=== PATIENT | male | born 1985 | race Caucasian/White ===

== ENCOUNTER → 2021-01-18 10:07 | Outpatient (BNVA) | payer OTHER, MEDICAID, SELFPAY | PROVIDERS: Referring Provider Family Medicine Adult Medicine; Visit Provider Orthopaedic Surgery | DX: M25.562 Pain in left knee (principal); M25.462 Effusion, left knee | CPT/HCPCS: 73560; 73565 ==

== ENCOUNTER → 2021-02-02 08:56 | Outpatient (BNVA) | payer OTHER, MEDICAID, SELFPAY | PROVIDERS: Visit Provider Orthopaedic Surgery | DX: M54.16 Radiculopathy, lumbar region (principal) | CPT/HCPCS: 72110 ==

== ENCOUNTER 2021-03-16 06:54 | Outpatient (CLI) | payer OTHER, BC, SELFPAY ==
--- NOTE | 2021-03-16 07:15 | MR_ITS ---
WS: [id number] MRI LUMBAR SPINE NONCONTRAST TECHNIQUE: Sagittal T1, T2 and STIR imaging. Axial T1 and T2 imaging. CLINICAL INFORMATION: M54.16 - Radiculopathy, lumbar region COMPARISON: None. FINDINGS: Mild lumbar curve. No acute compression. Mild disc bulging worse L5-S1. L1-L2: Normal. L2-L3: Minimal annular bulging. Mild facet arthropathy. Spinal canal and foramen are patent. L3-L4: Minimal annular bulging. Mild facet arthropathy. Spinal canal and foramen are patent. L4-L5: Minimal annular bulging. Slight effacement of ventral thecal sac. Mild facet arthropathy. Spin al canal and foramen are patent. L5-S1: Mild annular bulging with a small central and left pericentral shallow protrusion. Contact of the traversing left S1 nerve root. Recommend correlation for left S1 nerve root symptoms. Mild left f oraminal narrowing. Mild facet arthropathy. Visualized pelvic bony structures: Normal. Paravertebral soft tissues: Normal. MR/MR lumbar spine wo con* [id number] IMPRESSION: 1. Mild lumbar curve. No acute compression. No high-grade central canal stenos is. 2. Shallow central and left pericentral L5-S1 protrusion slightly impinges the traversing left S1 nerve root. Recommend correlation left S1 nerve root sympto ms. Mild left L5-S1 foraminal narrowing. 3. Mild annular bulging L4-5 with slight effacement of ventral thecal sac. Min imal narrowing of the left greater than right subarticular recess. 4. Mild facet arthropathy L4-L5 and L5-S1.
== END 2021-03-16 06:55 | disposition home or self-care (01) ==
LOC: RADSHAW 06:58
PROVIDERS: PCP Family Medicine Adult Medicine; Visit Provider Orthopaedic Surgery
DX: M54.16 Radiculopathy, lumbar region (principal); M47.816 Spondylosis without myelopathy or radiculopathy, lumbar region; M47.817 Spondylosis without myelopathy or radiculopathy, lumbosacral region; M51.26 Other intervertebral disc displacement, lumbar region; M51.27 Other intervertebral disc displacement, lumbosacral region
CPT/HCPCS: 72148

== ENCOUNTER → 2021-04-20 09:21 | Outpatient (BNVA) | payer OTHER, BC, MEDICAID, SELFPAY | PROVIDERS: PCP Family Medicine Adult Medicine; Visit Provider Orthopaedic Surgery | DX: Z01.812 Encounter for preprocedural laboratory examination (principal) | CPT/HCPCS: 87635 ==

== ENCOUNTER 2021-04-27 09:22 | Day surgery (SDC) | payer OTHER, BC, MEDICAID, SELFPAY ==
[2021-04-20 10:59] VITALS: BMI 34.9
[2021-04-27] VITALS (7 sets, daily range): BP systolic 114–163; BP diastolic 84–110; PULSE 78–104; RESP 16–18; TEMP 36.2–36.8; O2SAT 94–98
--- NOTE | 2021-04-27 | XR_ITS ---
WS: [id number] INTRAOPERATIVE TECHNIQUE: 2 Spot fluoroscopic images for intraoperative purposes. FLUOROSCOPY TIME: 9.7 seconds CLINICAL INFORMATION: herniated nuclues pulposus L5/S1 COMPARISON: None. FINDINGS: Localization marker projected over the LEFT L5-S1 interspace dorsally XR/XR lumbar spine 1V [id number] IMPRESSION: Images obtained for intraoperative purposes.
--- NOTE | 2021-04-27 | SCC_ITS ---
Procedure done: 1. L5/S1 laminectomy with partial facetectomy and diskectomy 9.7 seconds of fluoroscopic guidance, for a cumulative dose of 6.09 mGy, was provided to Dr. Tanner by the radiology department. C-arm images of the lumbar spine were saved for the patient's permanent record. [facility]
--- NOTE | 2021-04-27 09:02 | W.PM.OPSUD ---
Surgery/Procedure H&P Update DATE OF PROCEDURE: April 27, 2021 DATE H&P PERFORMED: 04/07/21 CHANGES TO PREVIOUS DOCUMENTATION: H+P reviewed no changes PLANNED PROCEDURE: Operation Date: 04/27/21 09:45 Proposed Procedures p Discectomy 34613/m51.26(Left) - Kemal Tanner DO
[2021-04-27] MEDS: sodium chloride 0.9% 1,000 ML 30 ML IV (10:14)
--- NOTE | 2021-04-27 10:18 | ANES.PREANE2 ---
Pre-Anesthetic Assessment Height/Weight: Height 1.91 m Weight 127.006 kg Temp Pulse Resp BP Pulse Ox 97.6 F 87 16 128/87 96 04/27/21 09:40 04/27/21 09:40 04/27/21 09:40 04/27/21 09:40 04/27/21 09:40 Preop Diagnosis: HNP left L5-S1 Operation Date: 04/27/21 09:45 Proposed Procedures p Discectomy 53452/m51.26(Left) - Kemal Tanner DO Familial anesthetic complications: None Was Beta Deepika taken within 24 hours: N/A Was Clonidine taken within 24 hours: N/A Last intake: Intake Last Liquid Date 04/26/21 Last Liquid Time 23:55 Last Solid Date 04/26/21 Last Solid Time 23:00 Social Tobacco and No alcohol Exam alert, oriented x 3, clear to auscultation bilaterally and regular rate & rhythm Airway Submandibular: within normal limits Cervical ROM: within normal limits Mallampati: Class II Dentition: partials Pulmonary Chronic Obstructive Pulmonary Disease GI Gastroesophageal Reflux Disease Metabolic Morbid Obesity Musc/sk Lower Back Pain Neuropsych Anxiety Anesthetic Plan ASA status: 2 Anesthesia: General Risk of > 500 ml blood loss (7ml/kg in children): No Medications/Allergies Home Medications Medication Instructions Recorded Confirmed Last Taken Type omeprazole 40 mg capsule,delayed 40 mg PO DAILY 01/17/21 04/27/21 04/26/21 23:00 History release sertraline 50 mg tablet See Rx Instructions .ROUTE 03/25/21 04/27/21 04/26/21 Rx .COMPLEX #30 tab Auto titrating APAP 5-20 cm and #1 ea 03/28/21 04/07/21 Unknown Rx supplies Allergies Allergy/AdvReac Type Severity Reaction Status Date / Time No Known Allergies Allergy Verified 04/20/21 10:57 Current Medications Generic Name Dose Route Start Last Admin Trade Name Freq PRN Reason Stop Dose Admin Sodium Chloride 1,000 mls @ 30 mls/hr 04/27/21 09:45 04/27/21 10:14 Sodium Chloride 0.9% IV 04/28/21 09:44 30 mls/hr .Q24H OSIEL Administration PFSH Anesthesia Medical History Anxiety and depression Patellar bursitis of left knee Sleep apnea syndrome Social History Alcohol intake: never Data Anesthesia Cardiac Studies: No Data to Display
--- NOTE | 2021-04-27 11:23 | PM.OP ---
Operative Report Date of procedure: April 27, 2021 Pre-op diagnosis: Preop Diagnosis HNP left L5-S1with S1 radiculopathy Post-op diagnosis: same Procedure done: 1. L5/S1 laminectomy with partial facetectomy and diskectomy Surgeon: Kemal Tanner [employer] Equipment Operator: Jarvis Winters [employer] Equipment Operator: The surgical services asst, Jarvis Winters, PAC was needed for his expertise under the microscope. He was important and necessary throughout the procedure to complete in a safe and timely manner. He assisted with patient positioning prepping and draping tissue retraction suctioning of the operative field protection of the dural sac and tissue closure Procedure: 1. L5/S1 laminectomy with partial facetectomy and diskectomy Patient is brought to the operative suite. After undergoing anesthesia they are placed in the prone position. All areas of impingement are well padded. Patient is then prepped and draped in the normal sterile fashion. A skin incision is made over the L5/S1 level. This is confirmed under c-arm guidance. A series of dilators are passed and the tubular retractor is docked on the L5 lamina. A bovie is used to clear the soft tissue off the lamina and the L 5 facet joint. A high speed debbie is then used to perform the laminectomy and take down the medial aspect of the L 5/S1 facet joint. A kerrison rongeure was then used to take down the remaining lamina and smooth the edge of the laminectomy up to the point where the ligamentum flavum attaches. Attention was then brought to the medial aspect of the facet joint. The remaining medial aspect of the superior and inferior aspect of the facet joint were taken down with the kerrison from the pedicle of L5 to S1. The facet joint had significant hypertrophy. Attention was then brought to the Ligamentum Flavum. The ligament was taken down from the lamina of L5 to S1 and out medially to the remaining facet joint. The ligament was thick. The dura was then exposed. The dura was in good repair. The L5 nerve was then traced with a curette out the L5/S1 foramen and found to be adequately decompressed. The S1 nerve was traced with a curette around the S1 pedicle. The lateral recess was opened with a kerrison helping to further decompress the S1 nerve. Wound is then irrigated copiously with saline and surgiflo is used to stop any bleeding. The tubular retractor is removed and the wound is closed with vicryl and monocryl suture. Glue is then used to protect the wound. A sterile dressing is then placed. Patient was then placed in the supine position and transferred to the PACU in stable condition.
--- NOTE | 2021-04-27 12:28 | ANE.PACU2 ---
Inpatient post-anesthesia follow up: Airway intact: Yes Vital signs: Temperature 97.9 F Pulse Rate 82 Respiratory Rate 16 Blood Pressure 116/87 Pulse Oximetry 94 Oxygen Delivery Me thod Room Air Oxygen Flow Rate 6 Fraction of Inspir ed Oxygen Hydration adequate: Yes Nausea and vomiting: No Pain level: 3 Mental status: Baseline
[2021-04-27] MEDS: HYDROcodone-acetaminophen 5-325 mg Tablet 1 TAB PO (12:33)
== END 2021-04-27 12:56 | disposition home or self-care (01) ==
PROVIDERS: PCP Family Medicine Adult Medicine; Visit Provider Orthopaedic Surgery
PROC: (CPT 63030; principal; 2021-04-27 09:45)
DX: M54.17 Radiculopathy, lumbosacral region (principal); J44.9 Chronic obstructive pulmonary disease, unspecified; K21.9 Gastro-esophageal reflux disease without esophagitis; E66.01 Morbid (severe) obesity due to excess calories; Z68.35 Body mass index [BMI] 35.0-35.9, adult; F41.9 Anxiety disorder, unspecified; G47.30 Sleep apnea, unspecified
CPT/HCPCS: 63030; 72020; 76000; J0690; J1100; J1885; J2250; J2405; J2704; J2710; J3010; J3490; J7030

== ENCOUNTER 2022-05-01 07:13 | Outpatient (CLI) | payer OTHER, SELFPAY ==
--- NOTE | 2022-05-01 07:15 | MR_ITS ---
WS: [id number] MRI LUMBAR SPINE NONCONTRAST TECHNIQUE: Sagittal T1, T2 and STIR imaging. Axial T1 and T2 imaging. CLINICAL INFORMATION: M54.17 - Radiculopathy, lumbosacral region COMPARISON: MRI March 16 FINDINGS: Mild lumbar curve. No acute compression. No high-grade central canal stenosis. Prior postoperative ch anges LEFT L5-S1 hemilaminectomy new from March 16, 2021. L1-L2: Normal. L2-L3: No significant disc bulging. Mild facet arthropathy. Spinal canal and foramen are patent. L3-L4: Minimal annular bulging. Mild facet arthropathy. Spinal canal and foramen are patent. L4-L5: Mild annular bulging eccentric to the RIGHT. Mild RIGHT and no LEFT foraminal narrowing. Sligh t narrowing of the RIGHT subarticular recess. Mild facet arthropathy. Spinal canal is patent. L5-S1: LEFT hemilaminectomy. This is new from previous. Contact of the LEFT S1 nerve root. Small ashley lar fissure. LEFT S1 nerve root impingement improved compared to previous. Mild LEFT foraminal narrow ing. Mild facet arthropathy. Visualized pelvic bony structures: Normal. Paravertebral soft tissues: Normal. MR/MR lumbar spine wo con* [id number] IMPRESSION: 1. Mild lumbar curve. No acute compression. No high-grade central canal stenos is. 2. LEFT L5-S1 hemilaminectomy with postoperative changes. Slight contact of th e LEFT S1 nerve root with a small disc protrusion/granulation tissue with annul ar fissure. This is improved compared to previous. Mild LEFT foraminal narrowin g. 3. Mild annular bulging L3-L4 with slight effacement of ventral thecal sac. 4. Mild annular bulging L4-L5 with slight narrowing of the RIGHT subarticular recess with mild RIGHT foraminal narrowing.
== END 2022-05-01 07:14 | disposition home or self-care (01) ==
LOC: RAD 07:17
PROVIDERS: PCP Family Medicine Adult Medicine; Visit Provider Orthopaedic Surgery
DX: M54.17 Radiculopathy, lumbosacral region (principal); M51.27 Other intervertebral disc displacement, lumbosacral region; M51.26 Other intervertebral disc displacement, lumbar region
CPT/HCPCS: 72148

== ENCOUNTER 2023-03-21 08:08 | Outpatient (CLI) | payer OTHER, SELFPAY ==
[2023-03-21 08:31] LABS: Add Urine Microscopic? NO; Charge for UA Resulting for Rev
[2023-03-21 08:36] LABS: Basophils # 0.1 10^3/uL (0.0-0.1); Basophils % 0.7 %; Eosinophils # 0.2 10^3/uL (0.0-0.8); Eosinophils % 2.4 %; Hematocrit 45.1 % (37-53); Lymphocytes # 2.2 10^3/uL (0.8-4.8); Lymphocytes % 28.9 %; Mean Corpuscular HGB Conc 33.5 g/dL (30-55); Mean Corpuscular Hemoglobin 27.4 pg (27-33); Mean Corpuscular Volume 81.9 fl (82-101); Mean Platelet Volume 9.5 fL (7.4-10.4); Monocytes # 0.4 10^3/uL (0.2-0.9); Monocytes % 5.5 %; Neutrophils # 4.67 10^3/uL (1.8-7.7); Neutrophils % 61.6 %; Nucleated Red Blood Cells % 0 %; Platelet Count 254 10^3/cmm (157-399); Red Blood Count 5.51 10^6/uL (3.85-5.65); Red Cell Distribution Width 13.7 % (12.1-15.1); White Blood Count 7.58 10^3/uL (3.29-11.43)
[2023-03-21 08:52] LABS: Bilirubin Urine Neg (Negative); Blood Urine Neg (Negative); Glucose Urine UA Norm (Normal); Ketones Urine Negative (Negative); Leukocyte Esterase Urine Negative (Negative); Nitrate Urine Negative (Negative); Protein Urine Neg (Negative); Urine Appearance Clear (CLEAR); Urine Color Yellow (Yellow); Urobilinogen Urine Norm (Negative); pH Urine 5 (5-7)
[2023-03-21 08:54] LABS: Alanine Aminotransferase 42 U/L (0-41); Albumin Level 3.9 g/dL (3.5-5.2); Alkaline Phosphatase 60 U/L (40-130); Anion Gap 14.9 (5-19); Aspartate Amino Transferase 27 U/L (0-40); Blood Urea Nitrogen 10 mg/dL (6-20); Calcium 9.1 mg/dL (8.5-10.5); Carbon Dioxide 22 mmol/L (22-29); Chloride 101 mmol/L (98-107); Globulin 3.7 g/dL (1.3-4.6); Glomerular Filtration Rate 94.4 mL/min (90-130); Glucose 141 mg/dL (65-115); Osmolality Calculated 279 mOsm/kg (285-295); Potassium 3.9 mmol/L (3.5-5.1); Sodium 134 mmol/L (136-145); Total Bilirubin 0.4 mg/dL (0.15-1.2); Total Protein 7.6 g/dL (6.6-8.7)
[2023-03-21 12:30] LABS: Estmated Average Glucose 111; Hemoglobin A1C 5.5 % (4.0-6.0)
== END 2023-03-21 08:09 | disposition home or self-care (01) ==
LOC: LAB 08:09
PROVIDERS: Family Medicine; PCP Family Medicine Adult Medicine; Visit Provider Orthopaedic Surgery
DX: Z98.890 Other specified postprocedural states (principal); Z01.818 Encounter for other preprocedural examination
CPT/HCPCS: 36415; 80053; 81003; 83036; 85025

== ENCOUNTER 2023-03-26 12:39 | Inpatient (IN) | payer OTHER, SELFPAY ==
[2023-03-26] VITALS (28 sets, daily range): BP systolic 104–140; BP diastolic 67–98; PULSE 71–112; RESP 12–20; TEMP 36.1–36.8; O2SAT 90–98; BMI 47.5; BMI 48.5
--- NOTE | 2023-03-26 | XR_ITS ---
WS: [id number] XR lumbar spine 2-3V* [id number] REASON FOR EXAM: L5-S1 Instrumented fusion FINDINGS: Intraoperative lumbar spine films A series of the AP and lateral lumbar spine images during surgery demonstrate bilateral pedicle screw placement at L5 and S1 with fusion device L5-S1 disc space. The surgical appliances are intact and in proper position and alignment. IMPRESSION: Intraoperative images of posterior lumbar as above.
[2023-03-26] MEDS: methadone 10 mg Tablet PO (07:42)
[2023-03-26] MEDS: sodium chloride 0.9% 1,000 ML 30 ML IV (07:52)
--- NOTE | 2023-03-26 08:24 | W.PM.OPSUD ---
Surgery/Procedure H&P Update DATE OF PROCEDURE: March 26, 2023 DATE H&P PERFORMED: 03/21/23 H&P UPDATE INFORMATION: I have reviewed H&P completed within last 30 days, I have examined patient prior to procedure and No changes to prior documentation PREOP DIAGNOSIS: Status postlaminectomy, lumbar stenosis PLANNED PROCEDURE: Operation Date: 03/26/23 08:45 Proposed Procedures p Posterior Lumbar Interbody Fusion PLIF L5/S1(Not Applicable) - Kemal Tanner DO
--- NOTE | 2023-03-26 08:40 | ANES.PREANE2 ---
Pre-Anesthetic Assessment Height/Weight: Height 1.88 m Weight 167.829 kg Temp Pulse Resp BP Pulse Ox O2 Del Method 97.5 F L 90 20 H 131/98 96 Room Air, CPAP 03/26/23 07:32 03/26/23 07:32 03/26/23 07:42 03/26/23 07:32 03/26/23 07:42 03/26/23 07:40 Preop Diagnosis: Status postlaminectomy, lumbar stenosis Operation Date: 03/26/23 08:45 Proposed Procedures p Posterior Lumbar Interbody Fusion PLIF L5/S1(Not Applicable) - Kemal Tanner, DO Was Beta Deepika taken within 24 hours: N/A Was Clonidine taken within 24 hours: N/A Last intake: Intake Last Liquid Date 03/25/23 Last Liquid Time 23:30 Last Solid Date 03/25/23 Last Solid Time 15:00 Social No tobacco Exam alert, oriented x 3 and clear to auscultation bilaterally Airway Submandibular: within normal limits Cervical ROM: within normal limits Mallampati: Class II Dentition: false Comments: Comments: Lower denture, upper bridge History/ROS No significant history except as noted and No significant complaints GI Gastroesophageal Reflux Disease Anesthetic Plan ASA status: 2 Anesthesia: General Risk of > 500 ml blood loss (7ml/kg in children): Yes, adequate IV access and fluids planned Medications/Allergies Home Medications Medication Instructions Recorded Confirmed Last Taken Type Auto titrating APAP 5-20 cm and #1 ea 03/28/21 02/22/23 Unknown Rx supplies omeprazole 40 mg capsule,delayed 40 mg PO DAILY 90 days #90 caps 06/01/22 03/22/23 03/26/23 05:30 Rx release sertraline 100 mg tablet 100 mg PO DAILY mental health #90 06/29/22 03/22/23 03/26/23 05:30 Rx tabs tramadol 50 mg tablet 50 mg PO .q 12 hr back/teeth pain 12/13/22 03/22/23 03/22/23 Rx 30 days #45 tabs Allergies Allergy/AdvReac Type Severity Reaction Status Date / Time No Known Allergies Allergy Verified 03/21/23 09:41 Current Medications Generic Name Dose Route Start Last Admin Trade Name Freq PRN Reason Stop Dose Admin Sodium Chloride 1,000 mls @ 30 mls/hr 03/26/23 07:30 03/26/23 07:52 Sodium Chloride 0.9% IV 03/27/23 07:29 30 mls/hr .Q24H OSIEL Administration PFSH Anesthesia Medical History Dental abscess Carpal tunnel syndrome, left Lt arm numbness DIPTI treated with BiPAP He uses an APAP machine GERD with apnea Patellar bursitis of left knee Anxiety and depression Surgical History S/P carpal tunnel release Approximately 2008 right-sided carpal tunnel release S/P lumbar laminectomy 04/27/2021 L5/S1 laminectomy with partial facetectomy and diskectomy, Dr. Tanner Social History Smoking and tobacco/nicotine status: former use of tobacco/nicotine Alcohol intake: never Substance/Drug Use: never Data Anesthesia Cardiac Studies: No Data to Display
[2023-03-26] MEDS: ceFAZolin 3,000 MG in sodium chloride 0.9% (plus) 100 ML 200 MG IV (08:49)
[2023-03-26] MEDS: vancomycin 1,000 MG SDV 1000 MG XX (10:05)
[2023-03-26] MEDS: lidocaine-epi 2% 20 mL INJ INJECTION (10:06)
[2023-03-26] MEDS: heparin, porcine 1,000 unit/mL INJ 10 mL 10000 UNIT IRRIGATION (10:06)
--- NOTE | 2023-03-26 12:51 | P.OP_ITS ---
Operative Report Date of procedure: March 26, 2023 Pre-op diagnosis: Lumbar stenosis Post-op diagnosis: same Procedure done: 1. L5/S1 Interbody fusion with posterolateral fusion 2. Instrumentation L5/S1 3. Cage at L5/S1 4. L5-S1 laminectomy with facetectomy 5. use of autograft from same incision 6. allograft 7. Bone marrow aspirate from from right iliac crest 8. Use of computer navigation/stereotactic for the spine Surgeon: Kemal Tanner DO Estimated blood loss (mL): 150 Procedure: 1. L5/S1 Interbody fusion with posterolateral fusion 2. Instrumentation L5/S1 3. Cage at L5/S1 4. L5-S1 laminectomy with facetectomy 5. use of autograft from same incision 6. allograft 7. Bone marrow aspirate from from right iliac crest 8. Use of computer navigation/stereotactic for the spine Patient is brought to the operative suite. After undergoing anesthesia, the patient had neuro monitoring attached. Patient was then placed in the prone position on the Renny table. All areas of impingement were well-padded. Patient was then prepped and draped in the normal sterile fashion. Skin incision was then made over the L5 to S1 disc space. Subperiosteal dissection was made out to the transverse processes of L5 and S1. The [employer] bone marrow aspirate kit was used to aspirate bone marrow aspirate. This was done by using the sharp probe to open up the bone. Aspiration was performed and then the blunt probe was then used to dissect down to through the bone tunnel. An aspirating well drawn back a millimeter approximately 20 cc of bone marrow aspirate was used. Admixed with the allograft and autograft bone that will be used. Next the fiducial for the computer navigation was placed into the right iliac crest. This was done by placing 2 pins in the right iliac crest. These 2 pins were later removed. Once the pins were placed then the fiducial was attached and linked to the computer. C-arm was brought in and spun around the patient and this was then used later for placement of the pedicle screws using computer navigation. The technique for placing the pedicle screws was to use a drill followed by the gearshift probe linked to computer navigation. Followed by the ball probe to feel the superior inferior medial lateral green of the pedicles. Then placement of the screws using computer navigation. Was done at each pedicle. Screws were placed at L5 bilaterally and S1. Next attention was brought to performing the laminectomy of L5. This was done using the high-speed bur Kerrisons and curettes. Once the lamina was removed and then attention was brought to performing a partial facetectomy on the contralateral side. This was done again using the high-speed bur curettes and Kerrisons. The ligamentum flavum was taken down bilaterally from L5 to S1. Attention was then brought to the facet on the ipsilateral side. The facet was taken down. The S1 nerve was decompressed as it passed around the S1 pedicle. The laminectomy was done for purposes of decompressing the nerve as well as placement of the cage. The L5 nerve was identified as it traversed through the L5/S1 foramen. The thecal sac was identified and retracted. The L5/S1 disc base was identified. Using a knife the disc base was opened. And then sequential sherlyn were placed. The first shaver was a 6 and the last shaver was a 9. Using a pituitary and down going curette the endplates were scraped and disc material was removed from the space. Once adequate decompression of the disc base was felt to be had. Osteoamp sponge was packed into the anterior aspect of the disc base. Then a size 10 cage from [employer] was placed after packing osteoamp into the cage. While placing the cage the thecal sac and S1 nerve was protected. C arm was used to ensure that the cages placed in the appropriate position. Attention was then brought to attaching the rods to the screws placed in the L5 bilaterally and S1 bilaterally. Caps were torqued into position. Locking the construct in place. Wound was copiously irrigated and then attention was brought to decorticating the facets and transverse processes laterally. Bone that was taken down from the lamina was used along with osteoamp fibers and sponges were packed into the lateral gutters along the facet joints. This was done bilaterally. Wound was then closed in a layered fashion starting with the thoracolumbar fascia. 0-vicryl was used the sub cutaneous tissue was closed with 2-0 vicryl and skin with 4-0 monocryl. Glue was then used to seal the skin and a steril dressing was applied. Patient was then placed in the supine position. The endotracheal tube was removed and patient was transferred to the PACU in stable condition.
[2023-03-26] MEDS: fentaNYL 50 mcg/mL INJ 2mL 100 MCG IVP (12:58)
[2023-03-26] MEDS: fentaNYL 50 mcg/mL INJ 2mL IVP (13:17)
[2023-03-26] MEDS: sodium chloride 0.9% 1,000 ML 100 ML IV (14:17)
[2023-03-26] MEDS: HYDROcodone-acetaminophen 10-325 mg Tablet PO ×2 (14:18→20:06)
[2023-03-26] MEDS: morphine 4 mg/mL SDV 1 mL 2 MG IVP ×3 (16:18→22:02)
[2023-03-26] MEDS: docusate sodium 100 mg Capsule PO (16:18)
--- NOTE | 2023-03-26 16:29 | ANE.PACU2 ---
Inpatient post-anesthesia follow up: Airway intact: Yes Vital signs: Temperature 98.1 F Pulse Rate 86 Respiratory Rate 18 Blood Pressure 127/86 Pulse Oximetry 94 Oxygen Delivery Me thod Room Air Oxygen Flow Rate 8 Fraction of Inspir ed Oxygen Hydration adequate: Yes Nausea and vomiting: No Pain level: 2 Mental status: Baseline
[2023-03-26] MEDS: ceFAZolin 3,000 MG in sodium chloride 0.9% (plus) 50 ML 100 MG IV (17:23)
[2023-03-26] MEDS: ketorolac 30 mg/mL INJ IVP (20:06)
[2023-03-27] VITALS (8 sets, daily range): BP systolic 121–145; BP diastolic 72–86; PULSE 73–91; RESP 15–20; TEMP 36.6–36.7; O2SAT 93–96
[2023-03-27] MEDS: lactated ringers 1,000 ML 90 ML IV (00:09)
[2023-03-27] MEDS: ceFAZolin 3,000 MG in sodium chloride 0.9% (plus) 50 ML 100 MG IV ×2 (00:10→10:56)
[2023-03-27] MEDS: HYDROcodone-acetaminophen 10-325 mg Tablet PO ×2 (00:10→10:55)
[2023-03-27] MEDS: morphine 4 mg/mL SDV 1 mL 2 MG IVP ×2 (02:41→04:51)
--- NOTE | 2023-03-27 08:10 | P.DS_ITS ---
Discharge Providers Date of Admission: 03/26/23 12:39 Date of Discharge: March 27, 2023 Attending Provider at Admission: Kemal Tanner DO Attending Provider at Discharge: Kemal Tanner DO Primary Care Provider: Tab Person MD Reason for Visit Reason for Visit: M48.062 Physical Exam Narrative: Please 5+ bilateral extremities minimal added Hemovac drain. Approximately 200 out overnight. Ambulating Urinary Catheter Management: Issa: Cath Placed During This Visit: yes Reason for Continuing Indwelling Catheter: Required Immobilization for Trauma or Surgery or Anesthesia Urinary Catheter Date of Insertion: 03/26/23 Urinary Catheter Time of Insertion: 09:15 Discharge Data Studies Completed and Pending Completed Studies During Hospitalization Category Date Time Status XR lumbar spine 2-3V* [id number] Routine Exams 03/26/23 Completed Vitals Last Vital Signs Temp 97.9 F 03/27/23 07:40 Pulse 73 03/27/23 07:40 Resp 15 03/27/23 07:40 BP 122/80 03/27/23 07:40 Pulse Ox 95 03/27/23 07:40 O2 Del Method Room Air 03/27/23 07:40 O2 Flow Rate 8 03/26/23 12:43 Discharge Plan Discharge Patient Disposition: Home Condition: Stable Prescriptions: New hydrocodone-acetaminophen 10-325 mg tablet 1 tab PO Q4H PRN (Reason: pain) 7 Days Qty: 40 0RF Continued omeprazole 40 mg capsule,delayed release(DR/EC) 40 mg PO DAILY 90 Days Qty: 90 3RF sertraline 100 mg tablet 100 mg PO DAILY Qty: 90 3RF tramadol 50 mg tablet 50 mg PO .q 12 hr 30 Days Qty: 45 3RF No Action (DME) Auto titrating APAP 5-20 cm and supplies See Rx Instructions .Route .MEDSUPPLY Qty: 1 0RF Rx Instructions: As directed Discharge Orders: Discharge Order (Routine); Ordered 03/27/23 Ordered By: Kemal Tanner Discharge Diet: Advance as tolerated Discharge Activity: Limit activity as instructed Patient Instructions: Opioid Safety Activity Restrictions/Additional Instructions: Thank you for [facility] for your care! The following is a list of instructions, from your provider, to follow upon your discharge to ensure you have the optimal recovery from your recent injury orsurgery. Follow-up care is a gerard part of your treatment and safety. Be sure to make and go to all appointments, and call your doctor if you are having problems. If you do not already have a follow-up appointment made, call Dr. Tanner office in the next 1-3 days to make follow up appointment for 1 weeks at [phone]. It is also a good idea to know your test results and keep a list of the medicines you take. Medications will be prescribed for you at your provider's discretion. These medications are to be used as instructed; if they are taken more often that prescribed they will not be refilled early and in most cases will not be re filled at all. > When a refill is needed,you should contact terri kaufman 2-3 business days before your prescription runs out. Medications will NOT be refilled by building construction estimator providers after hours! > Many pain medications contain Tylenol (Acetaminophen). Do not consume more than 4,000 mg of Tylenol per day in total with any combination ofmedications. > Pain medications can cause constipation. Please use an over the counter stool softener as directed, while taking pain medications. Consulty our local pharmacist with questions or recommendations on stool softeners. If constipation persists, contact our office or your primary care provider. > While under our care,you are not to receive pain medications or other controlled substances from any other provider unless our office is notified and approves. Any attempts to do so will result in refusal to prescribe any further pain medications and possible dismissal from our practice. ? Your wound and/or dressing should remain clean and dry for 7 days after surgery. ? Showering is permitted, however we ask that you do not take a bath, sit in a whirlpool / Jacuzzi, or go swimming for 1 month. For only the first 2 days after surgery, lt wilt be necessary for you to cover your wound/dressing with plastic and tape to keep it dry. ? Walking is essential for the healing process after surgery. We would like you to slowly advance your walking. This should be done on relatively flat clear ground (inside or out) or can be done on a treadmill. Remember this goal does not have to happen all at once, slowly increase your distance and duration. This can be broken into more more than one walk per day as tolerated. Patients who walk as directed after surgery rarely require Physical Therapy. In the unlikely event this issue arises your provider will direct hospital staff to make the appropriate arrangements. ? No lifting over 5 pounds {a gallon of milk) or bending/twisting until further notice. Each of these activities places an unnecessary amount of stress onto the body and can impede the delicate healing process. > Instead of bending at the waist, keep your back straight and bend at the knees. > Instead of twisting your torso, keep your back straight and turn your entire body with your feet. ? You may sleep in any position which makes you comfortable. Many patients find comfort sleeping in a reclining chair. It is not abnormal to have difficulty sleeping for the first several weeks following your surgery. We recommend trying Benadry! or Tylenol PM as directed to help with your sleeping difficulties. Both medications are over the counter and available withoutprescription. ? NO SMOKING!!! Smoking dramatically increases the probability of developing postoperative wound infections. ? Common complaints after lumbar and/or thoracic spine surgery include, but are not limited to: numbness and/or tingling in the legs, pain around the incision and surrounding tissues, muscle spasms, or stiffness of the middle to low back. Contact our office if these symptoms persist or if an acute change occurs. ? No driving for the first 3-5days, and not while taking narcotics [] until seen at your follow-up appointment and cleared. There are no restrictions for riding on short trips, however if you take a longer trip, arrangements should be made to make regular stops to get out of the vehicle and stretch . ? Swelling is an unfortunate event that will take place with any surgery and is the primary source of your postoperative discomfort. While walking and regular approved activities helps control inflammation, there are additional steps you can take to minimizeswelling. > Place ice over the surgical site and surrounding tissue for twenty minutes, followed by applying a low/medium heat (heating pad) for an additional twenty minutes every 1-2 hours as needed for painrelief. > You may use of over the counter anti-inflammatory medications (Ibuprofen, Motrin, Aleve, Advil, etc) as directed on the package label. These types of medicines wm significantly reduce the amount of discomfort you experien ce after surgery from swelling. It should be noted that if you have and allergy to any of these medications, or a history of ulcers or kidney disease you should consult you primary care provider prior to starting these medications. Discharge Attestations Time Spent in Discharge Care*: less than 30 min Quality Metrics Clinical Quality Measures [ No reported AMI, CVA or VTE this stay] Coding Level of Care Code Acute Code for Chg Yvette
--- NOTE | 2023-03-27 09:36 | PC.CHAP ---
Pastoral Care Encounter/Spiritual Assessment Type of Contact [] Declined dry janitor visit [] Patient/Family/Request visit [] Outpatient visit [] Follow-up visit [] Physician referral [] Code/Alert [x] Routine visit [] Staff referral [] Actively dying [] Patient sleeping [] Family support [] [] Out of room [] Palliative care [] [] Receiving care in room [] Pre-surgical visit [] Trauma [] Long length of stay [] ICU visit [] Other: Relational/Emotional Strength [x] Patient feels connected with others/family/visitors/staff [] Distress [] Loneliness/isolation [] Abandonment Spirituality of Patient [x] Person of Jaylene [] Attends Muslim of their Jaylene [x] Believes in Prayer [] Reads Bible or Anabaptism materials [] There are Spiritual issues to be addressed Filter Washer And Presser Interventions [x] Prayer [x] Active listening [] Non-anxious presence [x] Spiritual/emotional support [] Crisis/trauma care [] Spiritual counseling [] Bereavement support [] Provided bereavement packet [] Provided Bible/devotional materials [] Provided toy/stuffed animal, coloring book to patient or family member [] Provided Communion [] Anointing/[place] [] Salvation [x] Completed spiritual assessment [] Other: Impact on Illness or Injury [] Angry [] Fearful [] Anxious [] Often cries [] Exhaustion [] Unable to work [] Unable to attend latter day [] Unable to walk/stand [] Unable to read [] Unable to drive [] Unable to eat/drink [] Unable to sleep [] Unable to be with family [] Patient intubated [] Other: Summary Time spent with patient 5 min
[2023-03-27] MEDS: pantoprazole DR 40 mg Tablet PO (10:55)
[2023-03-27] MEDS: sertraline 100 mg Tablet PO (10:55)
[2023-03-27] MEDS: docusate sodium 100 mg Capsule PO (10:55)
--- NOTE | 2023-03-27 12:38 | PC.NURSE ---
Hemovac removed per verbal order of Dr. Tanner. Tolerated well.
== END 2023-03-27 13:30 | disposition home or self-care (01) | DRG 460 ==
LOC: MEDSURG 13:16
PROVIDERS: Admitting Provider Orthopaedic Surgery; PCP Family Medicine Adult Medicine; Visit Provider Orthopaedic Surgery
PROC: 0SG30AJ Fusion of Lumbosacral Joint with Interbody Fusion Device, Posterior Approach, Anterior Column, Open Approach (ICD-10-PCS; CPT 22612; principal; 2023-03-26 08:25)
DX: M48.061 Spinal stenosis, lumbar region without neurogenic claudication (principal); G47.33 Obstructive sleep apnea (adult) (pediatric); Z99.89 Dependence on other enabling machines and devices; K21.9 Gastro-esophageal reflux disease without esophagitis; F41.9 Anxiety disorder, unspecified; F32.A Depression, unspecified; Z87.891 Personal history of nicotine dependence
CPT/HCPCS: 51702; 72100; 76000; 97116; 97161; 97530; C1713; J0690; J1100; J1170; J1644; J1885; J2270; J2405; J2704; J3010; J3370; J3490; J7030; J7120

== ENCOUNTER → 2023-04-10 09:01 | Outpatient (BNVA) | payer OTHER, SELFPAY | PROVIDERS: PCP Family Medicine Adult Medicine; Visit Provider Orthopaedic Surgery | DX: Z47.89 Encounter for other orthopedic aftercare; Z98.1 Arthrodesis status | CPT/HCPCS: 72100 ==

== ENCOUNTER → 2023-05-08 08:24 | Outpatient (BNVA) | payer OTHER, SELFPAY | PROVIDERS: PCP Family Medicine Adult Medicine; Visit Provider Orthopaedic Surgery | DX: Z98.1 Arthrodesis status (principal); Z47.89 Encounter for other orthopedic aftercare | CPT/HCPCS: 72100 ==

== ENCOUNTER 2023-05-31 20:11 | Emergency (ER) | payer BC, MEDICAID, SELFPAY ==
[2023-05-31 20:12] VITALS: BP 156/101; PULSE 102; RESP 24; TEMP 36.4; O2SAT 96; BMI 47.1
--- NOTE | 2023-05-31 20:13 | ECG_ITS ---
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 Measurements Intervals Waterfall Rate: 96 P: 46 NH: 178 QRS: -8 QRSD: 84 T: 23 QT: 321 QTc: 407 Interpretive Statements SINUS RHYTHM INFERIOR MYOCARDIAL INFARCTION , PROBABLY OLD [40+ ms Q WAVE AND/OR ST/T ABNORMALITY IN II/aVF] No previous ECG available for comparison Electronically Signed On 06-01-2023 8:15:01 CDT by Golden Obregon M.D. [id number]
--- NOTE | 2023-05-31 20:13 | XRR_ITS ---
PROCEDURE INFORMATION: Exam: XR Chest Exam date and time: 05/31/2023 8:25 PM Age: 38 years old Clinical indication: Chest wall pain; Patient HX: SOB; Chest pain; Pneumonia x 4 weeks ago TECHNIQUE: Imaging protocol: Radiologic exam of the chest. Views: 1 view. COMPARISON: No relevant prior studies available. FINDINGS: Lungs: Unremarkable. No consolidation. Pleural spaces: Unremarkable. No pleural effusion. No pneumothorax. Heart/Mediastinum: Unremarkable. No cardiomegaly. Bones/joints: Unremarkable. XR/XR chest 1V portable [id number] IMPRESSION: No acute plain radiographic cardiopulmonary abnormality.
[2023-05-31 20:52] LABS: Basophils % 0.4 %; Eosinophils # 0.2 10^3/uL (0.0-0.8); Eosinophils % 2.8 %; Hematocrit 45.1 % (37-53); Lymphocytes # 2.8 10^3/uL (0.8-4.8); Lymphocytes % 51.9 %; Mean Corpuscular HGB Conc 32.8 g/dL (30-55); Mean Corpuscular Hemoglobin 26.1 pg (27-33); Mean Corpuscular Volume 79.7 fl (82-101); Mean Platelet Volume 9.5 fL (7.4-10.4); Monocytes # 0.3 10^3/uL (0.2-0.9); Monocytes % 4.9 %; Neutrophils # 2.07 10^3/uL (1.8-7.7); Neutrophils % 39.1 %; Nucleated Red Blood Cells % 0 %; Platelet Count 209 10^3/cmm (157-399); Red Blood Count 5.66 10^6/uL (3.85-5.65); Red Cell Distribution Width 15.2 % (12.1-15.1)
--- NOTE | 2023-05-31 20:55 | ED_ITS ---
HPI - SOB/Dyspnea 2 General: Chief Complaint: Shortness of Breath/Dyspnea Stated Complaint: SOB, cp Time Seen by Provider: 05/31/23 20:47 Source: patient Mode of arrival: ambulatory Limitations: no limitations History of Present Illness: HPI Narrative: 30-year-old male states been having coug h wheezing over the last 4 weeks. He states that he has been on azithromycin along with steroid he states that did not help he states he just started a new prescription of doxycycline on Sunday. He states been using albuterol inhaler as well he states he had wheezing along with cough he has been having sharp chest pains along with pain with inspiration. He denies any fevers. Patient's pulse ox here is 97% on room air. Denies any abdominal pain or vomiting Associated symptoms: Reports chest pain; Deny abdominal pain, fever(s), nausea or vomiting Review of Systems 2 Const: Denies: fever(s), chills, body aches or change in appetite ENMT: Denies: throat pain or dental pain Card: Reports: chest pain Resp: Reports: dyspnea and productive cough GI: Denies: abdominal pain, nausea, vomiting or diarrhea Musc: Denies: neck pain or back pain Skin/Breast: Denies: rash Neuro: Denies: headache(s) PFSH ED 2 PFSH: Medical History Dental abscess Carpal tunnel syndrome, left Lt arm numbness DIPTI treated with BiPAP He uses an APAP machine GERD with apnea Patellar bursitis of left knee Anxiety and depression Surgical History S/P carpal tunnel release Approximately 2008 right-sided carpal tunnel release S/P lumbar laminectomy 04/27/2021 L5/S1 laminectomy with partial facetectomy and diskectomy, Dr. Tanner Social History Smoking and tobacco/nicotine status: former use of tobacco/nicotine Alcohol intake: never Substance/Drug Use: never Physical Exam 2 Const: COMMON NORMALS: no acute distress, patient oriented x3 and healthy appearing HENMT: COMMON NORMALS: normocephalic and atraumatic HEAD & SCALP: n ormocephalic and atraumatic Eye: COMMON NORMALS: conjunctivae normal CONJUNCTIVA: Yes conjunctivae normal Neck/C-Spine: COMMON NORMALS: full ROM and supple Chest: COMMONS NORMALS: normal inspection of the chest and normal palpation of entire chest wall Resp: COMMON NORMALS: normal respiratory effort, No retractions and No use of accessory muscles AUSCULTATION: wheezes Cardio: COMMON NORMALS: regular rate and No murmurs present (Cardio) RATE: regular rate and tachycardic Extremity: COMMON NORMALS: normal to inspection and full ROM Neuro: COMMON NORMALS: patient oriented x3, moves all extremities and no focal motor deficits Psych: COMMON NORMALS: mental status grossly normal, Normal thought process present and cooperative THOUGHT PROCESS: Normal thought process present Skin: COMMON NORMALS: no rashes or lesions noted and no wounds GENERAL SKIN EXAM: no rashes or lesions noted Course 2 Vital Signs: Vital signs: Vital Signs Temperature 97.6 F 05/31/23 20:12 Pulse Rate 87 05/31/23 22:21 Respiratory Rate 21 H 05/31/23 22:21 Blood Pressure 168/101 05/31/23 22:21 Pulse Oximetry 94 05/31/23 22:21 Oxygen Delivery Me thod Room Air 05/31/23 21:29 MDM - SOB/Dyspnea Medical Decision Making Patient presents here with cough congestion he does have some wheezing here x- ray showed no pneumonia CTA showed no signs of pulmonary embolism troponin here is negative he is stable for discharge patient is to follow-up with his PCP is continue his antibiotics and steroids use his inhaler he is return if worsening he understands agrees to plan. Medical Records I reviewed the patient's medical records. Lab Data I reviewed the patient's lab results. 05/31/23 20:42 05/31/23 20:42 Labs/Radiology: Radiology Impressions Chest X-Ray 05/31/23 20:13 IMPRESSION: No acute plain radiographic cardiopulmonary abnormality. Chest CTA 05/31/23 21:12 IMPRESSION: 1. No convincing evidence of pulmonary embolism. Limited evaluation of some of the peripheral basilar branches. 2. Aeln-aq-zeddusqh patchy left upper lobe ground-glass opacities, suggestive of atypical pneumonitis versus pulmonary contusion. 3. Moderate to severe fatty liver. Mild splenomegaly. Laboratory Results WBC 5.30 10^3/uL (3.29-11.43) 05/31/23 20:42 RBC 5.66 10^6/uL (3.85-5.65) H 05/31/23 20:42 Hgb 14.80 g/dL (11.27-16.99) 05/31/23 20: Hct 45.1 % (37-53) 05/31/23 20: MCV 79.7 fl (82-101) L 05/31/23 20: MCH 26.1 pg (27-33) L 05/31/23 20: MCHC 32.8 g/dL (30-55) 05/31/23 20: RDW 15.2 % (12.1-15.1) H 05/31/23 20: Plt Count 209 10^3/cmm (157-399) 05/31/23 20: MPV 9.5 fL (7.4-10.4) 05/31/23 20: Neut % (Auto) 39.1 % 05/31/23 20: Lymph % (Auto) 51.9 % 05/31/23 20: [place] % (Auto) 4.9 % 05/31/23 20:42 Eos % (Auto) 2.8 % 05/31/23 20: Baso % (Auto) 0.4 % 05/31/23 20: Neut # (Auto) 2.07 10^3/uL (1.8-7.7) 05/31/23 20: Lymph # (Auto) 2.8 10^3/uL (0.8-4.8) 05/31/23 20: [place]ave # (Auto) 0.3 10^3/uL (0.2-0.9) 05/31/23 20: Eos # (Auto) 0.2 10^3/uL (0.0-0.8) 05/31/23 20: Baso # (Auto) 0.0 10^3/uL (0.0-0.1) 05/31/23 20: Nucleated RBC % (auto) 0 % 05/31/23 20: Nucleated RBCs # 0.0 /100WBC 05/31/23 20: D-Dimer 0.64 ug/mLFEU (0-0.59) H 05/31/23 20: Sodium 137 mmol/L (136-145) 05/31/23 20:42 Potassium 4.0 mmol/L (3.5-5.1) 05/31/23 20:42 Chloride 101 mmol/L (98-107) 05/31/23 20:42 Carbon Dioxide 22 mmol/L (22-29) 05/31/23 20:42 Anion Gap 18.0 (5-19) 05/31/23 20:42 BUN 9 mg/dL (6-20) 05/31/23 20:42 Creatinine 1.0 mg/dL (0.7-1.2) 05/31/23 20:42 GFR Calculation 83.6 mL/min (90-130) L 05/31/23 20:42 Glucose 103 mg/dL (65-115) 05/31/23 20:42 Calculated Osmolality 283 mOsm/kg (285-295) L 05/31/23 20:42 Calcium 9.6 mg/dL (8.5-10.5) 05/31/23 20:42 Total Bilirubin 0.2 mg/dL (0.15-1.2) 05/31/23 20:42 AST 26 U/L (0-40) 05/31/23 20:42 ALT 29 U/L (0-41) 05/31/23 20:42 Alkaline Phosphatase 76 U/L (40-130) 05/31/23 20:42 Troponin T Baseline 9 ng/L (0-15) 05/31/23 20:42 NT-Pro-B Natriuret Pep < 36 pg/mL (0-125) 05/31/23 20:42 Total Protein 7.5 g/dL (6.6-8.7) 05/31/23 20:42 Albumin 4.2 g/dL (3.5-5.2) 05/31/23 20:42 Globulin 3.3 g/dL (1.3-4.6) 05/31/23 20:42 All radiology interpretation(s) finalized by discharge EKG Data EKG 1: I personally reviewed and interpreted this EKG as follows: EKG Interpretation Date: 05/31/23 EKG interpretation time: 20:21 Interpretation: nsr hr [address] or t wave abnormalities qrs 84 qtc 375 Discharge Plan Discharge Patient Disposition: Home Clinical Impression: Community acquired pneumonia Condition: Stable Prescriptions: No Action sertraline 100 mg tablet 100 mg PO DAILY Qty: 90 3RF tramadol 50 mg tablet 50 mg PO .q 12 hr 30 Days Qty: 45 3RF albuterol sulfate [Ventolin HFA] 90 mcg/actuation HFA aerosol inhaler 2 puff inhalation QID Qty: 6.7 0RF doxycycline hyclate 100 mg tablet 100 mg PO BID 7 Days Qty: 14 0RF (DME) Auto titrating APAP 5-20 cm and supplies See Rx Instructions .Route .MEDSUPPLY Qty: 1 0RF Rx Instructions: As directed omeprazole 40 mg capsule,delayed release(DR/EC) 40 mg PO DAILY 90 Days Qty: 90 3RF Discharge Orders: Discharge ED (Routine); Ordered 05/31/23 Ordered By: Angelina Pearson Referrals: Tab Person MD [Primary Care Provider] - 4-7 days Discharge Diet: Advance as tolerated Discharge Activity: Resume usual activity Patient Instructions: Acute Bronchitis (ED) Coding Level of Care Code ED Svp Monetization for Leeroy Crawford
[2023-05-31 20:58] VITALS: BP 151/105; PULSE 89; RESP 25; O2SAT 96
[2023-05-31 21:09] LABS: D Dimer 0.64 ug/mLFEU (0-0.59)
[2023-05-31] MEDS: ketorolac 30 mg/mL INJ 15 MG IVP (21:11)
--- NOTE | 2023-05-31 21:12 | CTR_ITS ---
PROCEDURE INFORMATION: Exam: CTA Chest With Contrast Exam date and time: 05/31/2023 9:19 PM Age: 38 years old Clinical indication: Abnormal findings; Abnormal diagnostic tests; Elevated d-dimer; Dyspnea; Additional info: SOB TECHNIQUE: Imaging protocol: Computed tomographic angiography of the chest with contrast. Exam focused on the arteries. 3D rendering (Not supervised by radiologist): MIP and/or 3D reconstructed images were created by the technologist. Radiation optimization: All CT scans at this facility use at least one of these dose optimization techniques: automated exposure control; mA and/or kV adjustment per patient size (includes targeted exams where dose is matched to clinical indication); or iterative reconstruction. Contrast material: OMNI 350; Contrast volume: 100 ml; Contrast route: INTRAVENOUS (IV); COMPARISON: CR (CHEST, ) 05/31/2023 8:25 PM RADIATION DOSE METRICS: Total DLP (mGy-cm): 673 FINDINGS: Pulmonary arteries: No evidence of pulmonary emboli to the segmental level. Evaluation of the subsegmental branches is limited by artifact. Apparent linear filling defect in a subsegmental right lower lobe branch (series 6, image [id number]) is likely due to artifact. Aorta: Unremarkable. No aortic aneurysm. No aortic dissection. Lungs: Mild- moderate multifocal patchy ground-glass opacity in the anterior left upper lobe and apex. Pleural spaces: Unremarkable. No pneumothorax. No pleural effusion. Heart: Unremarkable. No cardiomegaly. No pericardial effusion. Lymph nodes: Nonspecific 3 mm perifissural nodule in the right middle lobe (series 4, image 39), likely due to intraparenchymal lymph node. Follow-up in 1 year may be considered according to the Fleischner guidelines if there are underlying risk factors. Liver: Moderate to severe diffuse hepatic steatosis. Spleen: Mild splenomegaly up to 17.9 cm. Bones/joints: Unremarkable. No acute fracture. Soft tissues: Unremarkable. CT/CT angio chest PE protcl [id number] IMPRESSION: 1. No convincing evidence of pulmonary embolism. Limited evaluation of some of the peripheral basilar branches. 2. Gbyj-vm-ksujryau patchy left upper lobe ground-glass opacities, suggestive of atypical pneumonitis versus pulmonary contusion. 3. Moderate to severe fatty liver. Mild splenomegaly.
[2023-05-31 21:15] LABS: Troponin(5th) Baseline 9 ng/L (0-15)
[2023-05-31] MEDS: iohexol 350 mg/mL 500 mL Btl (per mL) IV (21:19)
[2023-05-31 21:22] LABS: Slide Review Slide Review Perform
[2023-05-31 21:25] LABS: Alanine Aminotransferase 29 U/L (0-41); Albumin Level 4.2 g/dL (3.5-5.2); Alkaline Phosphatase 76 U/L (40-130); Aspartate Amino Transferase 26 U/L (0-40); Blood Urea Nitrogen 9 mg/dL (6-20); Calcium 9.6 mg/dL (8.5-10.5); Carbon Dioxide 22 mmol/L (22-29); Chloride 101 mmol/L (98-107); Creatinine Clr Calc Pharmacy 164.2019; Globulin 3.3 g/dL (1.3-4.6); Glomerular Filtration Rate 83.6 mL/min (90-130); Glucose 103 mg/dL (65-115); NT Pro B Type Natriuretic Pept < 36 pg/mL (0-125); Osmolality Calculated 283 mOsm/kg (285-295); Sodium 137 mmol/L (136-145); Total Bilirubin 0.2 mg/dL (0.15-1.2); Total Protein 7.5 g/dL (6.6-8.7)
[2023-05-31 21:26] VITALS: PULSE 88; RESP 20; O2SAT 97
[2023-05-31] MEDS: ipratropium-albuterol 3 mL Neb INHALATION (21:26)
[2023-05-31 21:29] VITALS: PULSE 89; RESP 20; O2SAT 95
[2023-05-31 21:45] VITALS: BP 183/102; PULSE 90; RESP 17; O2SAT 95
[2023-05-31 22:21] VITALS: BP 168/101; PULSE 87; RESP 21; O2SAT 94
== END 2023-05-31 22:22 | disposition home or self-care (01) ==
PROVIDERS: Emergency Provider Emergency Medicine; PCP Family Medicine Adult Medicine
DX: J18.9 Pneumonia, unspecified organism (principal); Z87.891 Personal history of nicotine dependence
CPT/HCPCS: 36415; 71045; 71275; 80053; 83880; 84484; 85025; 85378; 93005; 94640; 96374; 99285; J1885; Q9967

== ENCOUNTER → 2023-06-21 15:22 | Outpatient (BNVA) | payer BC, MEDICAID, SELFPAY | PROVIDERS: PCP Family Medicine Adult Medicine; Visit Provider Orthopaedic Surgery | DX: Z98.1 Arthrodesis status (principal) | CPT/HCPCS: 72100 ==

== ENCOUNTER → 2023-09-25 08:01 | Outpatient (BNVA) | payer OTHER, SELFPAY | PROVIDERS: PCP Family Medicine Adult Medicine; Visit Provider Orthopaedic Surgery | DX: Z98.1 Arthrodesis status (principal) | CPT/HCPCS: 72100 ==

== ENCOUNTER 2023-10-08 08:35 | Outpatient (RCR) | payer OTHER, SELFPAY | END 2023-10-17 23:59 | disposition home or self-care (01) | LOC: SPT 08:35 | PROVIDERS: PCP Family Medicine Adult Medicine; Visit Provider Orthopaedic Surgery | DX: Z98.1 Arthrodesis status (principal) | CPT/HCPCS: 97110; 97161 ==

== ENCOUNTER 2023-10-18 06:00 | Outpatient (RCR) | payer OTHER, SELFPAY | END 2023-11-17 23:59 | disposition home or self-care (01) | LOC: SPT 06:00 | PROVIDERS: PCP Family Medicine Adult Medicine; Visit Provider Orthopaedic Surgery | DX: M43.26 Fusion of spine, lumbar region (principal) | CPT/HCPCS: 97110; G0283 ==

== ENCOUNTER 2023-11-18 06:00 | Outpatient (RCR) | payer OTHER, SELFPAY | END 2023-12-17 23:59 | disposition home or self-care (01) | LOC: SPT 06:00 | PROVIDERS: PCP Family Medicine Adult Medicine; Visit Provider Orthopaedic Surgery | DX: M43.26 Fusion of spine, lumbar region (principal); M54.59 Other low back pain | CPT/HCPCS: 97110; 97161; G0283 ==

== ENCOUNTER → 2023-11-22 08:18 | Outpatient (BNVA) | payer OTHER, SELFPAY | PROVIDERS: PCP Family Medicine Adult Medicine; Visit Provider Nurse Practitioner | DX: J02.9 Acute pharyngitis, unspecified (principal) | CPT/HCPCS: 87880 ==

== ENCOUNTER 2023-12-18 06:00 | Outpatient (RCR) | payer OTHER, SELFPAY | END 2024-01-17 23:59 | disposition home or self-care (01) | LOC: SPT 06:00 | PROVIDERS: PCP Family Medicine Adult Medicine; Visit Provider Orthopaedic Surgery | DX: M43.26 Fusion of spine, lumbar region (principal) | CPT/HCPCS: 97110; 97530 ==

== ENCOUNTER 2024-01-18 06:00 | Outpatient (RCR) | payer OTHER, SELFPAY | END 2024-02-16 23:59 | disposition home or self-care (01) | LOC: SPT 06:00 | PROVIDERS: PCP Family Medicine Adult Medicine; Visit Provider Orthopaedic Surgery | DX: M43.26 Fusion of spine, lumbar region (principal); M54.59 Other low back pain | CPT/HCPCS: 97110 ==

== ENCOUNTER → 2024-03-25 08:01 | Outpatient (BNVA) | payer OTHER, SELFPAY | PROVIDERS: PCP Family Medicine Adult Medicine; Visit Provider Orthopaedic Surgery | DX: Z98.1 Arthrodesis status (principal) | CPT/HCPCS: 72100 ==